=== PATIENT | male | born 1960 | race Caucasian/White ===

== ENCOUNTER → 2018-08-09 | Outpatient (CLI) | payer OTHER ==
[~2018-08-09] MED LIST: VAR05PT PO; VARE1TAB3 PO
[2018-08-09 07:46] LABS: PLATELET COUNT, AUTOMATED 330 K/uL (150-450)
[2018-08-09 08:19] LABS: LDL CHOLESTEROL 115 mg/dl
== END ==
LOC: LAB 07:28
PROVIDERS: ATTEND Internal Medicine
DX: Z00.00 Encounter for general adult medical examination without abnormal findings (principal); Z12.5 Encounter for screening for malignant neoplasm of prostate
CPT/HCPCS: 36415; 81001; 82040; 82247; 82310; 82374; 82435; 82465; 82565; 82947; 83718; 84075; 84132; 84153; 84155; 84295; 84443; 84450; 84460; 84478; 84520; 85025

== ENCOUNTER 2018-09-18 07:25 | Emergency (ER) | payer OTHER ==
[2018-09-18 07:30] VITALS: BP 172/95
[2018-09-18] MEDS ORDERED: DIPHTH/TETANUS/ACEL. PERTUSSIS IM ONLY ONE (07:45)
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
== END 2018-09-18 07:59 | disposition home or self-care (01) ==
LOC: ER 07:32
DX: S30.810A Abrasion of lower back and pelvis, initial encounter (principal)
CPT/HCPCS: 90471; 90715; 99283